=== PATIENT | female | born 1935 | race Caucasian/White ===

== ENCOUNTER 2016-10-19 17:16 | Emergency (ER) | payer MEDICARE, BC ==
--- NOTE | 2016-10-19 18:10 | Emergency Department Record ---
History of Present Illness - General Chief Complaint: Fall Injury Stated Complaint: FALL INJURY Time Seen by Provider: 10/19/16 18:02 Source: Patient Mode of Arrival: Ambulatory - History of Present Illness Initial Comments: The patient is a who lives alone with her small dog. She was outside walking the dog when the dog jerked hard on the leash and caught her off guard. She fell face first onto the asphalt cutting her lip. A passerby brought her to the [facility]. She did not lose consciousness. She states her front teeth feel "big" and sore and her neck and right shoulder hurt, although in the past she has had pains in these areas before. She states she is supposed to have lumbar back surgery for a disc problem but has not scheduled it. She has chronic low back pain as well which is unchanged. She denies taking blood thinners of any kind. Complaint: Fall Onset/Timin -: Minutes(s) Fall From: Standing When Fall Occurred: Just prior to arrival Fall Witnessed: Yes, by bystander Place Fall Occurred: Street Loss of Consciousness: None Prolonged Down Time?: No Symptoms Prior to Fall: None Location: Face Severity: Moderate Severity scale (1-10): 6 Quality: Aching - [place] Coma Scale Eye Response: (4) Open spontaneously Motor Response: (6) Obeys commands Verbal Response: (5) Oriented [place] Total: 15 - Related Data Home Medications Medication Instructions Recorded Confirmed Last Taken Clonidine HCl [Catapres] 0.1 mg PO ASDIR 04/28/14 10/19/16 1 Day Ago ~10/18/16 Desloratadine [Desloratadine] 5 mg PO ASDIR 04/28/14 10/19/16 1 Day Ago ~10/18/16 Desvenlafaxine Succinate [Pristiq 100 mg PO ASDIR 04/28/14 10/19/16 1 Day Ago ER] ~10/18/16 Levothyroxine Sodium [Synthroid] 75 mcg PO ASDIR 04/28/14 10/19/16 1 Day Ago ~10/18/16 Meloxicam [Meloxicam] 15 mg PO ASDIR 04/28/14 10/19/16 1 Day Ago ~10/18/16 Tiagabine HCl [Tiagabine HCl] 4 mg PO ASDIR 04/28/14 10/19/16 1 Day Ago ~10/18/16 Trazodone HCl [Desyrel] 50 mg PO QHS 04/28/14 10/19/16 1 Day Ago ~10/18/16 Zolpidem Tartrate [Ambien Cr] 12.5 mg PO ASDIR 04/28/14 10/19/16 1 Day Ago ~10/18/16 Previous Rx's Medication Instructions Recorded Fluticasone Propionate [Flonase] 2 spray EACH NARES DAILY #1 bottle 04/28/14 Acetaminophen with Codeine 1 tab PO Q4H #14 tab 10/19/16 [Tylenol #3] Penicillin V Potassium 500 mg PO Q6H #39 tab 10/19/16 Allergies Allergy/AdvReac Type Severity Reaction Status Date / Time Sulfa (Sulfonamide Allergy HIVES Verified 10/19/16 17:28 Antibiotics) Travel Screening - Travel/Exposure Within Last 30 Days Have you traveled within the last 30 days?: No - Travel/Exposure Within Last Year Have you traveled outside the [place] in the last year?: No - Additonal Travel Details Have you been exposed to anyone with a communicable illness?: No - Travel Symptoms Symptom Screening: None Review of Systems Reviewed: No additional complaints except as noted below Constitutional: Reports: As per HPI. Denies: Chills, Fever, Malaise, Night sweats, Weakness, Weight change Eyes: Reports: As per HPI. Denies: Eye discharge, Eye pain, Photophobia, Vision change ENT: Reports: As per HPI. Denies: Congestion, Dental pain, Ear pain, Epistaxis , Hearing loss, Throat pain Respiratory: Reports: As per HPI. Denies: Cough, Dyspnea, Hemoptysis, Stridor, Wheezes Cardiovascular: Reports: As per HPI. Denies: Arrhythmia, Chest pain, Dyspnea on exertion, Edema, Murmurs, Orthopnea, Palpitations, Paroxysmal nocturnal dyspnea, Rheumatic Fever, Syncope Endocrine: Reports: As per HPI. Denies: Fatigue, Heat or cold intolerance, Polydipsia, Polyuria Gastrointestinal: Reports: As per HPI. Denies: Abdominal pain, Constipation, Diarrhea, Hematemesis, Hematochezia, Melena, Nausea, Vomiting Genitourinary: Reports: As per HPI. Denies: Abnormal menses, Discharge, Dyspareunia, Dysuria, Frequency, Hematuria, Incontinence, Retention, Urgency Musculoskeletal: Reports: As per HPI. Denies: Arthralgia, Back pain, Gout, Joint swelling, Myalgia, Neck pain Skin: Reports: As per HPI. Denies: Bruising, Change in color, Change in hair/ nails, Lesions, Pruritus, Rash Neurological: Reports: As per HPI. Denies: Abnormal gait, Confusion, Headache, Numbness, Paresthesias, Seizure, Tingling, Tremors, Vertigo, Weakness Psychiatric: Reports: As per HPI. Denies: Anxiety, Auditory hallucinations, Depression, Homicidal thoughts, Suicidal thoughts, Visual hallucinations Hematological/Lymphatic: Reports: As per HPI. Denies: Anemia, Blood Clots, Easy bleeding, Easy bruising, Swollen glands Past Medical History - SOCIAL HISTORY Smoking Status: Current every day smoker Alcohol Use: None Drug Use: None - RESPIRATORY Hx Respiratory Disorders: No Hx Pneumonia: Yes Comment:: viral pneumonia that made [facility] lungs collapse in hosp. 3 mo. - CARDIOVASCULAR Hx Cardio Disorders: Yes Hx Heart Attack: Yes (Jul 2015) Hx Hypertension: Yes - NEURO Hx Neuro Disorders: No - GI Hx GI Disorders: No - Hx Genitourinary Disorders: Yes Comment:: incontinence - ENDOCRINE Hx Endocrine Disorders: Yes Hx Thyroid Disease: Yes - MUSCULOSKELETAL Hx Musculoskeletal Disorders: Yes Hx Back Injury: Yes Comment:: spinal stenosis - PSYCH Hx Psych Problems: No - HEMATOLOGY/ONCOLOGY Hx Hematology/Oncology Disorders: No Family Medical History Any Significant Family History?: Yes Hx Cancer: Father, Mother Physical Exam - General General Appearance: Alert, Oriented x3, Cooperative, No acute distress - Head Image of Face/Head: 1 - Nasal and facial contusion with lacerated upper lip crossing eddy border. Upper front are sensitive to palpation. - Eye Eye exam: Normal appearance, PERRL Pupils: Normal accommodation - ENT ENT exam: Normal exam, Mucous membranes moist, Normal external ear exam, Normal orophraynx, TM's normal bilaterally Ear exam: Normal external inspection. negative: External canal tenderness Nasal Exam: Normal inspection, Other (see drawing). negative: Discharge, Sinus tenderness Mouth exam: Normal external inspection, Tongue normal, Other (see draawing) Teeth exam: Normal inspection, Other (see drawing). negative: Dental caries Throat exam: Normal inspection. negative: Tonsillar erythema, Tonsillar exudate - Neck Neck exam: Normal inspection, Full ROM, Tenderness (diffuse neck tenderness all levels and bilaterally) - Respiratory Respiratory exam: Normal lung sounds bilaterally. negative: Chest wall tenderness, Respiratory distress - Cardiovascular Cardiovascular Exam: Regular rate, Normal rhythm, Normal heart sounds - GI/Abdominal GI/Abdominal exam: Soft, Normal bowel sounds. negative: Tenderness - Rectal Rectal exam: Deferred - exam: Deferred - Extremities Extremities exam: Normal inspection, Full ROM, Normal capillary refill, Tenderness (diffusely sore right shoulder at humeral head), Other (no bony tenderness to lower extremities; ROM intact to all extremities excepting diffusely tender right shoulder on ROM.) - Back Back exam: Reports: Normal inspection, Full ROM. Denies: Muscle spasm, Rash noted, Tenderness - Neurological Neurological exam: Alert, Normal gait, Oriented X3, Reflexes normal - Psychiatric Psychiatric exam: Normal affect, Normal mood - Skin Skin exam: Dry, Intact, Normal color, Warm Course Vital Signs 10/19/16 17:19 Temperature 98.3 F Pulse Rate 78 Respiratory 18 Rate Blood Pressure 155/99 Pulse Ox 95 - Reevaluation(s) Reevaluation #1: DW Dr. Tamra Marx neurosurgeon who requests the patient follow up in his office during the upcoming week. Office number [phone]. 10/19/16 20:06 Medical Decision Making - Management Options MDM Management: Additional Work-up Planned (e.g. ADM/Transfer/OP Study) ( Neurosurgeon in office this week.) - Data Complexity MDM Data: X-Ray Ordered and/or Reviewed (Noncontrast Head CT, C spine CT and Facial bones CT: Numerous chronic changes; C spine has multilevel degenerative changes with a nondisplaced fracture of C3 spur at the anterior inferior base of the spur.) Disposition Disposition: Discharge Clinical Impression: Neck and shoulder pain, Bone spur of other site Fall Qualifiers: Encounter type: initial encounter Qualified Code(s): W19.XXXA - Unspecified fall, initial encounter Laceration of lip Qualifiers: Encounter type: initial encounter Qualified Code(s): S01.511A - Laceration without foreign body of lip, initial encounter Disposition: Home, Self-Care Condition: (1) Good Instructions: Fall Prevention for Older Adults (ED) Additional Instructions: Soft collar. Follow up with Dr. Barboza neurosurgery in his office this upcoming week. Bring disc of scan to your appointment with you. Office number is [phone]. Pen Vk as directed until gone. Sutures on lip will dissolve. Soft diet, Ice to swelling first 72 hours as needed. Expect scarring and possible permanent lump. Follow up with PCP as needed.. Prescriptions: Acetaminophen with Codeine [Tylenol #3] 1 tab PO Q4H #14 tab Penicillin V Potassium 500 mg PO Q6H #39 tab
[2016-10-19] MEDS: Diph,Pert(Acell),Tet Vac 0.5 ML SYR IM ONE (19:25)
[2016-10-19] MEDS: PENICILLIN V POTASSIUM 250 MG TAB PO ONE (20:02)
[2016-10-19] MEDS: ACETAMINOPHEN W/ CODEINE 300MG/30MG TABLET PO ONE (20:31)
--- NOTE | 2016-10-23 17:22 | CT SCAN REPORT ---
EXAM: CT SCAN HEAD WO CONTRAST HISTORY: PATIENT FELL AND STRUCK THE FACE AND NOSE REGION. TECHNIQUE: Standard CT imaging of the brain was performed in the axial plane without contrast. Additional coronal and sagittal reformatted images were also performed. HAND DOMINANCE: Right. ENCOUNTER: Initial. COMPARISON: Previous CT scan of the facial bones dated March 22, 2015. FINDINGS: There is mild generalized atrophy. The ventricles and subarachnoid spaces are otherwise normal. Moderate chronic small vessel ischemic changes are present within the periventricular and subcortical white matter of both cerebral hemispheres. Old lacunar infarcts are present within the basal ganglia bilaterally. The skull is intact. The orbits and sinuses are normal. There is nonspecific fluid within the left mastoid air cells. The right mastoid air cells are clear. IMPRESSION: 1. NO ACUTE INTRACRANIAL ABNORMALITY OR SKULL FRACTURE. 2. MILD ATROPHY AND MODERATE CHRONIC SMALL VESSEL ISCHEMIC CHANGES. 3. NONSPECIFIC FLUID WITHIN THE LEFT MASTOID AIR CELLS. JOB NUMBER: [id number] [facility]TDD
--- NOTE | 2016-10-23 17:29 | CT SCAN REPORT ---
EXAM: CT SCAN MAXILLOFACIAL WO CONTRAST HISTORY: PATIENT FELL AND STRUCK THE NOSE/FACE. PAIN. HAND DOMINANCE: Right. ENCOUNTER: Initial. COMPARISON: March 22, 2015. FINDINGS: The facial bones are intact. There is no fracture. There is very minor mucosal thickening within the ethmoid and maxillary sinuses. There are no sinus air-fluid levels. The nasal bones, nasal septum, and nasal turbinates are normal. The orbits are unremarkable. The remaining facial soft tissues also appear normal. There is nonspecific fluid within the left mastoid air cells. IMPRESSION: NEGATIVE CT SCAN OF THE FACIAL BONES. JOB NUMBER: [id number] [facility]
--- NOTE | 2016-10-23 17:35 | CT SCAN REPORT ---
EXAM: CT SCAN CERVICAL SPINE WO CONTRAST HISTORY: PATIENT FELL AND STRUCK THE FACIAL REGION. INJURY. TECHNIQUE: Standard CT imaging of the cervical spine was performed in the axial plane without contrast. Additional coronal and sagittal reformatted images were also performed. HAND DOMINANCE: Right. ENCOUNTER: Initial. COMPARISON: None. FINDINGS: There is normal cervical alignment. The craniocervical and cervicothoracic junctions are normal. There is a nondisplaced fracture at the base of an anterior spur arising from the anterior/inferior corner of the C3 vertebral body. The vertebral body itself appears intact. The remaining osseous structures also appear intact. There is no evidence for instability or subluxation. Disc space narrowing and endplate degenerative changes are present throughout the cervical spine and are greatest at the C4/5 level. There is no gross central canal stenosis. There is mild neural foraminal narrowing at multiple levels. The neck soft tissues appear within normal limits. There are postsurgical changes at the left apex. Emphysematous changes are also present within the upper lung kirk. IMPRESSION: 1. THERE IS A NONDISPLACED FRACTURE INVOLVING A DEGENERATIVE SPUR EXTENDING OFF THE ANTERIOR/INFERIOR CORNER OF THE C3 VERTEBRAL BODY. THERE ARE NO OTHER CERVICAL SPINE FRACTURES. 2. MULTILEVEL DEGENERATIVE DISC DISEASE AND FACET ARTHROPATHY. JOB NUMBER: [id number] [facility]
--- NOTE | 2016-10-23 17:38 | RADIOLOGY REPORT ---
EXAM: SHOULDER, RIGHT HISTORY: RIGHT SHOULDER PAIN STATUS POST FALL. PREVIOUS SHOULDER SURGERY. TECHNIQUE: Five views of the right shoulder were obtained. COMPARISON: October 03, 2015. FINDINGS: The patient is status post internal fixation of an oblique fracture within the proximal shaft of the humerus. Plate and screw fixation is present. A small portion of the fracture line remains visible. There is no acute fracture or dislocation. There are moderate hypertrophic degenerative changes of the AC joint and glenoid. There is no dislocation. The shoulder is otherwise unremarkable. IMPRESSION: 1. NO ACUTE RIGHT SHOULDER PATHOLOGY. 2. MODERATE ARTHRITIC CHANGES. 3. PREVIOUS INTERNAL FIXATION OF A PROXIMAL SHAFT FRACTURE WITHIN THE HUMERUS. JOB NUMBER: [id number] [facility]TDD
== END 2016-10-19 20:40 | disposition home or self-care (01) ==
LOC: ER 17:16
DX: S01.511A Laceration without foreign body of lip, initial encounter (principal); S00.33XA Contusion of nose, initial encounter; M54.2 Cervicalgia; M25.511 Pain in right shoulder; M46.02 Spinal enthesopathy, cervical region; I25.2 Old myocardial infarction; I10 Essential (primary) hypertension; F17.210 Nicotine dependence, cigarettes, uncomplicated; W01.198A Fall on same level from slipping, tripping and stumbling with subsequent striking against other object, initial encounter; Y93.K1 Activity, walking an animal; Y92.410 Unspecified street and highway as the place of occurrence of the external cause
CPT/HCPCS: 40650; 70450; 70486; 72125; 90715; 96372; 99284

== ENCOUNTER 2017-11-02 19:50 | Emergency (ER) | payer MEDICARE ==
--- NOTE | 2017-11-02 19:59 | Emergency Department Record ---
History of Present Illness - General Stated Complaint: FALL Time Seen by Provider: 11/02/17 19:52 Source: Patient, EMS Mode of Arrival: EMS Limitations: No limitations - History of Present Illness Initial Comments: 81 yo female presents to ED for evaluation of a fall while walking her dog just prior to arrival. Patient reports that she tripped while walking on the sidewalk resulting in fall with injury to the nose and face. Patient denies the use of anticoagulation medication, denies LOC or neck pain symptoms. Patient does report pain over the right knee. Patient denies extremity weakness , numbness, or tingling symptoms. Patient denies health problems at her baseline other than HTN. MD Complaint: Fall Onset/Timin -: Minutes(s) Fall From: Standing When Fall Occurred: 1 hour [employer]UCK [employer]ENT[employer] Fall Witnessed: No Place Fall Occurred: Street Loss of Consciousness: None Prolonged Down Time?: No Symptoms Prior to Fall: None Location: Head, Face Location - Extremities: Right: Knee Severity: Moderate Quality: Aching Context: Alcohol use, Tripped/slipped - [place] Coma Scale Eye Response: (4) Open spontaneously Motor Response: (6) Obeys commands Verbal Response: (5) Oriented [place] Total: 15 - Related Data Previous Rx's Medication Instructions Recorded Fluticasone Propionate [Flonase] 2 spray EACH NARES DAILY #1 bottle 04/28/14 Acetaminop W/ Codeine 300/30Mg 1 tab PO Q4H #14 tab 10/19/16 [Tylenol #3] Hydrocodone/Acetaminophen [[place] 1 each PO Q6H PRN #15 tablet 11/02/17 5-325 Tablet] Allergies Allergy/AdvReac Type Severity Reaction Status Date / Time Sulfa (Sulfonamide Allergy HIVES Verified 10/19/16 17:28 Antibiotics) Review of Systems Constitutional: Denies: Chills, Fever, Malaise, Night sweats Eyes: Denies: Eye discharge, Eye pain ENT: Reports: Epistaxis. Denies: Congestion, Ear pain Respiratory: Denies: Cough, Dyspnea Cardiovascular: Denies: Chest pain, Dyspnea on exertion Endocrine: Denies: Fatigue, Heat or cold intolerance Gastrointestinal: Denies: Abdominal pain, Nausea, Vomiting Genitourinary: Denies: Incontinence, Retention Musculoskeletal: Reports: Arthralgia (right knee), Joint swelling (right knee). Denies: Back pain, Gout Skin: Reports: Bruising. Denies: Change in color, Change in hair/nails Neurological: Denies: Abnormal gait, Confusion, Headache, Seizure Psychiatric: Denies: Anxiety Hematological/Lymphatic: Denies: Anemia, Blood Clots Past Medical History - SOCIAL HISTORY Smoking Status: Current every day smoker Drug Use: None - RESPIRATORY Hx Respiratory Disorders: No Hx Pneumonia: Yes Comment:: viral pneumonia that made maria alejandra lungs collapse in hosp. 3 mo. - CARDIOVASCULAR Hx Cardio Disorders: Yes Hx Heart Attack: Yes (Jul 2015) Hx Hypertension: Yes - NEURO Hx Neuro Disorders: No - GI Hx GI Disorders: No - Hx Genitourinary Disorders: Yes Comment:: incontinence - ENDOCRINE Hx Endocrine Disorders: Yes Hx Thyroid Disease: Yes - MUSCULOSKELETAL Hx Musculoskeletal Disorders: Yes Hx Back Injury: Yes Comment:: spinal stenosis - PSYCH Hx Psych Problems: No - HEMATOLOGY/ONCOLOGY Hx Hematology/Oncology Disorders: No Family Medical History Hx Cancer: Father, Mother Physical Exam - General General Appearance: Alert, Oriented x3, Cooperative, Moderate distress Limitations: No limitations - Head Head exam: Other (Skin abrasion over the nose, epistaxis present with dried blood, no active bleeding.) Head exam detail: negative: Abrasion, Contusion, Strong's sign, General tenderness, Hematoma, Laceration - Eye Eye exam: Normal appearance. negative: Conjunctival injection, Periorbital swelling, Periorbital tenderness, Scleral icterus - ENT Ear exam: negative: Auricular hematoma, Auricular trauma Nasal Exam: Dried blood, Other (No septal hematoma. (2) areas of skin loss to the philtrum are present, 1.0 cm to the left philtrum region, 0.5 cm area of skin loss present to the superior/left philtrum region. Area cannot be sutured/ repaired primarily due to tissue loss without possible deformity to the upper lip from stretching of the tissue.). negative: Discharge, Foreign body Mouth exam: negative: Drooling, Laceration, Muffled voice, Tongue elevation - Neck Neck exam: Other (Cervical collar in place). negative: Meningismus - Respiratory Respiratory exam: Normal lung sounds bilaterally. negative: Rales, Respiratory distress, Rhonchi, Stridor - Cardiovascular Cardiovascular Exam: Regular rate, Normal rhythm, Normal heart sounds Peripheral Pulses: 3+: Dorsalis Pedis (R), Dorsalis Pedis (L) - GI/Abdominal GI/Abdominal exam: Soft. negative: Rebound, Rigid, Tenderness - Rectal Rectal exam: Deferred - exam: Deferred - Extremities Extremities exam: Tenderness (TTP over the right knee, STS present, flexion at the knee is intact, no injury below or above the knee on examination. Compartments of the lower extremity are soft, strong DPP is present.). negative : Calf tenderness, Pedal edema - Back Back exam: Denies: CVA tenderness (R), CVA tenderness (L) - Neurological Neurological exam: Alert, Oriented X3. negative: Motor sensory deficit - Psychiatric Psychiatric exam: Normal affect, Normal mood - Skin Skin exam: Normal color. negative: Abrasion Type of lesion: negative: abrasion Course - Reevaluation(s) Reevaluation #1: 11/02/17 20:01 Patient was seen and examined, denies the need for analgesia at this time. Will initiate basic laboratory and imaging studies and reassess. Reevaluation #2: 11/02/17 20:29 Labs reviewed, CO2 30, AG 18. Labs are otherwise grossly unremarkable for an acute process. Patient is currently in CT for imaging studies. Reevaluation #3: 11/02/17 21:33 CT Head: No acute traumatic injury CT Cervical Spine: DJD, no acute fracture CT Maxillo-facial bone: Comminuted, minimally displaced nasal bone fracture Right knee: Comminuted fracture patella, possible tibial plateau fracture Following review of the patient's imaging, she was updated on results thus far. Will perform CT imaging of the right knee to further determine if tibial plateau fracture may be present. Reevaluation #4: 11/02/17 23:02 CT right lower extremity: Comminuted patella fracture without evidence for tibial plateau fracture present. Message was left for Dr. Turpin, will place in knee immobilizer (patient has walker at home) to be used at all times with ambulation and instructions to not bend the the lower extremity at the knee to avoid separation of the patella fracture. Patient was updated on the area of tissue loss to the philtrum of the upper lip region, cannot be repaired primarily due to possible permanent deformity of the left upper lip from stretching of the tissue. Will allow this area to heal by [id number] intention with instructions for plastics follow-up as needed. Medical Decision Making - Lab Data Result diagrams: 11/02/17 19:51 11/02/17 19:51 Disposition Disposition: Discharge Clinical Impression: Patella fracture Qualifiers: Encounter type: initial encounter Fracture type: closed Fracture morphology: comminuted Fracture alignment: nondisplaced Laterality: right Qualified Code(s) : S82.044A - Nondisplaced comminuted fracture of right patella, initial encounter for closed fracture Nasal bone fracture Qualifiers: Encounter type: initial encounter Fracture type: closed Qualified Code(s): S02.2XXA - Fracture of nasal bones, initial encounter for closed fracture Disposition: Home, Self-Care Condition: (2) Stable Instructions: Patellar Fracture (ED) Additional Instructions: Return to ED if your symptoms worsen or if you have any concerns. Pendergrass as directed. Follow-up with Dr. Turpin in the [facility] later this week. Prescriptions: Hydrocodone/Acetaminophen [[place] 5-325 Tablet] 1 each PO Q6H PRN #15 tablet PRN Reason: Pain - Moderate (5-7) Referrals: DAR TURPIN [DOCTOR OF OSTEOPATH] - [facility] [Provider Group] Time of Disposition: 23:07 Quality - Quality Measures Quality Measures: N/A - Blood Pressure Screening Does Patient Have Any of the Following: Active Dx of HTN Blood Pressure Classification: Hypertensive Reading Systolic Measurement: 201 Diastolic Measurement: 92 Screening for High Blood Pressure: Patient Exclusion, Hx of HTN [[id number]]
[2017-11-02 20:01] LABS: BASO % 0.3 % (0-6); EOS % 1.3 % (0-6); HEMATOCRIT 43.1 % (35.0-47.0); HEMOGLOBIN 14.7 gm/dl (11.6-16.0); LYMPH % 20.5 % (16-45); MEAN CELL VOLUME 98.9 fl (81-97); MEAN CORPUSCULAR HEMOGLOBIN 33.7 pg (27-33); MEAN CORPUSCULAR HGB CONC 34.1 g/dl (32-36); MEAN PLATELET VOLUME 10.5 fl (7.4-10.4); MONO % 8.9 % (0-9); PLATELET COUNT 249 K/uL (130-400); RED BLOOD COUNT 4.36 M/uL (3.80-5.40); RED CELL DISTRIBUTION WIDTH 13.5 % (11.5-14.5)
[2017-11-02 20:14] LABS: BLOOD UREA NITROGEN 18 mg/dL (8-23); CREATININE 0.9 mg/dL (0.5-0.9); EST GLOMERULAR FILTRATION RATE > 60 mL/min
[2017-11-02 20:15] LABS: TOTAL PROTEIN 6.6 g/dL (6.6-8.7)
[2017-11-02 20:17] LABS: GLUCOSE,RANDOM 99 mg/dL (74-109)
[2017-11-02 20:20] LABS: ALB/GLOB RATIO 1.9 (1.1-1.8); ALBUMIN 4.3 g/dL (4.0-5.0); ALKALINE PHOSPHATASE 87 U/L (35-104); ALT/SGPT 11 U/L (<33); AST/SGOT 16 U/L (10.0-35.0)
[2017-11-02] MEDS ORDERED: FENTANYL PF 100MCG/2ML VIAL IVP ONE (21:11)
[2017-11-02] MEDS ORDERED: ONDANSETRON HCL IV 4 MG/2 ML VIAL IVP ONE (21:11)
--- NOTE | 2017-11-04 14:13 | RADIOLOGY REPORT ---
EXAM: RIGHT KNEE HISTORY: FALL. TECHNIQUE: Four views of the right knee were obtained. Comparison: None. FINDINGS: There is a comminuted, mildly distracted fracture of the patella. There is irregularity of the tibial plateau without definite fracture. Moderate medial joint space narrowing. There is a large amount of soft tissue swelling anterior to the patella and a small joint effusion. IMPRESSION: COMMINUTED, MILDLY DISPLACED FRACTURE OF THE PATELLA. TIBIAL PLATEAU FRACTURE IS NOT EXCLUDED. CONSIDER CT FOR ADDITIONAL EVALUATION. JOB NUMBER: [id number] [facility]
--- NOTE | 2017-11-04 14:26 | CT SCAN REPORT ---
EXAM: CT OF THE HEAD WITHOUT IV CONTRAST HISTORY: FALL. TECHNIQUE: CT of the head without IV contrast was obtained. Comparison: CT head 10/19/16. Hand dominance: Right. FINDINGS: No evidence of hemorrhage, extraaxial fluid collection, or major vessel infarction. Moderate periventricular and deep white matter low density changes are again seen, consistent with chronic microvascular ischemic disease. The ventricles are normal. The basal cisterns are patent. No mass effect or midline shift. The calvarium is intact. Hypoplasia of the left mastoid air cells with a small amount of fluid is unchanged. There is also a small amount of fluid in the left ethmoid air cells. IMPRESSION: NO ACUTE INTRACRANIAL ABNORMALITIES. J[facility]BER: [id number] [facility]
--- NOTE | 2017-11-04 14:30 | CT SCAN REPORT ---
EXAM: MAXILLOFACIAL CT WITHOUT IV CONTRAST HISTORY: FALL. TECHNIQUE: Helical CT scan of the maxillofacial bones was obtained without IV contrast. Coronal and sagittal reformatted images were obtained. FINDINGS: There is a comminuted, minimally displaced fracture of the nasal bone. No hematoma of the nasal septum. There is a small amount of soft tissue/ fluid density in the left ethmoid air cells. The zygomatic arches are intact. The inferior orbital rims are intact. The temporomandibular joints are aligned normally. IMPRESSION: COMMINUTED, MINIMALLY DISPLACED NASAL BONE FRACTURE. JOB NUMBER: [id number] [facility]
--- NOTE | 2017-11-04 14:34 | CT SCAN REPORT ---
EXAM: CT OF THE CERVICAL SPINE WITHOUT IV CONTRAST HISTORY: FALL. TECHNIQUE: Helical CT scan of the cervical spine was obtained without intravenous contrast. Comparison: CT cervical spine 10/19/16. Encounter: Initial. FINDINGS: Normal alignment of the cervical vertebral bodies with mild accentuated lordosis of the cervical spine. The previously seen fracture of the osteophyte of the inferior aspect of C3 anteriorly has healed in the interim. Multilevel moderate degenerative changes are again seen in the cervical spine. The facet joints are aligned normally. No prevertebral soft tissue swelling. No acute fractures are identified. The lung apices show emphysematous changes with surgical clips in the left apex, similar to previous exam. IMPRESSION: DEGENERATIVE CHANGES OF THE CERVICAL SPINE, NO EVIDENCE OF ACUTE FRACTURE OR MALALIGNMENT. JOB NUMBER: [id number] [facility]
--- NOTE | 2017-11-04 14:39 | CT SCAN REPORT ---
EXAM: CT OF THE RIGHT KNEE WITHOUT IV CONTRAST HISTORY: FALL. TECHNIQUE: 3D imaging was performed on a dependent portion workstation for improved visualization of fracture anatomy. Comparison: X-rays done earlier today. FINDINGS: DISTAL FEMUR: No fracture. PROXIMAL TIBIA: Mild spurring of the tibial spines. No fracture. PROXIMAL FIBULA: No fracture. PATELLA: Comminuted, mildly distracted fracture. There is moderate soft tissue swelling around the patellar fracture. Small joint effusion, lipohemarthrosis. 3D: The comminuted fracture of the patella is well demonstrated. IMPRESSION: COMMINUTED PATELLAR FRACTURE WITH SURROUNDING SOFT TISSUE SWELLING. THERE IS A SMALL LIPOHEMARTHROSIS. NO ADDITIONAL FRACTURES ARE IDENTIFIED. J[facility]BER: [id number] [facility]
== END 2017-11-02 23:00 | disposition home or self-care (01) ==
LOC: ER 19:50
DX: S82.044A Nondisplaced comminuted fracture of right patella, initial encounter for closed fracture (principal); S02.2XXA Fracture of nasal bones, initial encounter for closed fracture; S01.501A Unspecified open wound of lip, initial encounter; I10 Essential (primary) hypertension; W01.198A Fall on same level from slipping, tripping and stumbling with subsequent striking against other object, initial encounter; I25.2 Old myocardial infarction; F17.210 Nicotine dependence, cigarettes, uncomplicated; Y93.K1 Activity, walking an animal; Y92.410 Unspecified street and highway as the place of occurrence of the external cause
CPT/HCPCS: 29505; 99284 ×2; 96374; 96375; 85025; 80053; 73564; 72125; 70450; 73700; 70486; G0480; J2405; J3010; 80320

== ENCOUNTER 2018-05-16 18:24 | Observation (INO) | payer MEDICARE ==
[2018-05-16] MEDS ORDERED: MORPHINE SULFATE 10 MG/ML VIAL IVP ONE (18:47)
[2018-05-16] MEDS ORDERED: ONDANSETRON HCL IV 4 MG/2 ML VIAL IVP ONE (18:47)
--- NOTE | 2018-05-16 18:51 | Emergency Department Record ---
History of Present Illness - General Chief Complaint: Abdominal Pain Stated Complaint: VOMITING,ABDOMINAL PAIN Time Seen by Provider: 05/16/18 18:42 Source: Patient Mode of Arrival: Stretcher Limitations: No limitations - History of Present Illness Initial Comments: 82 yo female presents to ED for evaluation of diffuse abdominal pain, nausea, and vomiting that began 2-3 days ago. Patient's caregiver reports history of hiatal hernia that has migrated into the chest cavity that is inoperable due to the patient's age. Patient reports that she is being medically treated with omeprazole for her symptoms. Patient denies fevers, chills, or previous abdominal surgeries. MD Complaint: Abdominal pain Onset/Timin -: Hour(s) Location: Diffuse Radiation: None Migration to: No migration Severity: Moderate Severity scale (1-10): 10 Quality: Aching, Sharp Consistency: Constant Improves With: Nothing Worsens With: Nothing Associated Symptoms: Nausea, Vomiting - Related Data Patient : No Previous Rx's Medication Instructions Recorded Fluticasone Propionate [Flonase] 2 spray EACH NARES DAILY #1 bottle 04/28/14 Acetaminop W/ Codeine 300/30Mg 1 tab PO Q4H #14 tab 10/19/16 [Tylenol #3] Hydrocodone/Acetaminophen [[place] 1 each PO Q6H PRN #15 tablet 11/02/17 5-325 Tablet] Allergies Allergy/AdvReac Type Severity Reaction Status Date / Time Sulfa (Sulfonamide Allergy HIVES Verified 10/19/16 17:28 Antibiotics) Travel Screening - Travel/Exposure Within Last 30 Days Have you traveled within the last 30 days?: No - Travel/Exposure Within Last Year Have you traveled outside the [place] in the last year?: No - Additonal Travel Details Have you been exposed to anyone with a communicable illness?: No - Travel Symptoms Symptom Screening: None Review of Systems Constitutional: Denies: Chills, Fever, Malaise, Night sweats Eyes: Denies: Eye discharge, Eye pain ENT: Denies: Congestion, Ear pain, Epistaxis Respiratory: Denies: Cough, Dyspnea Cardiovascular: Denies: Chest pain, Dyspnea on exertion Endocrine: Denies: Fatigue, Heat or cold intolerance Gastrointestinal: Reports: Abdominal pain, Nausea, Vomiting Genitourinary: Denies: Incontinence, Retention Musculoskeletal: Denies: Arthralgia, Back pain Skin: Denies: Bruising, Change in color Neurological: Denies: Abnormal gait, Confusion, Headache, Seizure Psychiatric: Denies: Anxiety Hematological/Lymphatic: Denies: Anemia, Blood Clots Past Medical History - SOCIAL HISTORY Smoking Status: Current every day smoker Alcohol Use: None Drug Use: None - RESPIRATORY Hx Respiratory Disorders: No Hx Pneumonia: Yes Comment:: viral pneumonia that made [facility] collapse in hosp. 3 mo. - CARDIOVASCULAR Hx Cardio Disorders: Yes Hx Heart Attack: Yes (Jul 2015) Hx Hypertension: Yes - NEURO Hx Neuro Disorders: No - GI Hx GI Disorders: No - Hx Genitourinary Disorders: Yes Comment:: incontinence - ENDOCRINE Hx Endocrine Disorders: Yes Hx Thyroid Disease: Yes - MUSCULOSKELETAL Hx Musculoskeletal Disorders: Yes Hx Back Injury: Yes Comment:: spinal stenosis - PSYCH Hx Psych Problems: No - HEMATOLOGY/ONCOLOGY Hx Hematology/Oncology Disorders: No Family Medical History Any Significant Family History?: Yes Hx Cancer: Father, Mother Physical Exam - General General Appearance: Alert, Oriented x3, Cooperative, Moderate distress Limitations: No limitations - Head Head exam: Atraumatic, Normocephalic, Normal inspection Head exam detail: negative: Abrasion, Contusion, Strong's sign, General tenderness, Hematoma, Laceration - Eye Eye exam: Normal appearance. negative: Conjunctival injection, Periorbital swelling, Periorbital tenderness, Scleral icterus - ENT Ear exam: negative: Auricular hematoma, Auricular trauma Nasal Exam: negative: Active bleeding, Discharge, Dried blood, Foreign body Mouth exam: negative: Drooling, Laceration, Muffled voice, Tongue elevation - Neck Neck exam: Normal inspection. negative: Meningismus, Tenderness - Respiratory Respiratory exam: Normal lung sounds bilaterally. negative: Rales, Respiratory distress, Rhonchi, Stridor - Cardiovascular Cardiovascular Exam: Regular rate, Normal rhythm, Normal heart sounds - GI/Abdominal GI/Abdominal exam: Soft, Tenderness, Other (Diffuse TTP present on examination, soft, no rigidity, no peritoneal signs are present on examination.). negative: Rebound, Rigid - Rectal Rectal exam: Deferred - exam: Deferred - Extremities Extremities exam: Normal inspection. negative: Pedal edema, Tenderness - Back Back exam: Denies: CVA tenderness (R), CVA tenderness (L) - Neurological Neurological exam: Alert, Normal gait, Oriented X3 - Psychiatric Psychiatric exam: Normal affect, Normal mood - Skin Skin exam: Normal color. negative: Abrasion Type of lesion: negative: abrasion Course Vital Signs 05/16/18 18:30 Temperature 98.6 F Pulse Rate 117 H Respiratory 54 H Rate Blood Pressure 223/164 - Reevaluation(s) Reevaluation #1: 05/16/18 19:49 Laboratory studies were reviewed: WBC 12.5 with 90% Neutrophils CO2 21 AG [address] ready for [address] imaging, Dilaudid and Phenergan ordered for continued pain symptoms following Morphine and Zofran. Reevaluation #2: 05/16/18 21:12 CT Abdomen and Pelvis: Increased biliary duct dilatation which may result from expected change s/p cholecystectomy vs. possible biliary obstruction Large hiatal hernia with the majority of the stomach within the chest. Patient was reassessed, she is now sleeping and resting comfortably at this time. Case was discussed with Kelly Stevenson, will admit for further evaluation and possible Hospice consultation. Medical Decision Making - Lab Data Result diagrams: 05/16/18 19:00 05/16/18 19:00 Disposition Disposition: Admit Clinical Impression: Hiatal hernia, Chronic abdominal pain Disposition: Still a Patient at [facility] Decision to Admit: Admit from ER Decision to Admit Date: 05/16/18 Decision to Admit Time: 21:18 Condition: (2) Stable Forms: Patient Portal Access Time of Disposition: 21:18 Quality - Quality Measures Quality Measures: N/A - Blood Pressure Screening Does Patient Have Any of the Following: Active Dx of HTN Blood Pressure Classification: Hypertensive Reading Systolic Measurement: 223 Diastolic Measurement: 164 Screening for High Blood Pressure: Patient Exclusion, Hx of HTN [G9744]
[2018-05-16] MEDS ORDERED: 0.9 % SODIUM CHLORIDE 1000ML 1,000 ML IV SCH (19:00)
[2018-05-16 19:17] LABS: HEMATOCRIT 44.1 % (35.0-47.0); HEMOGLOBIN 14.8 gm/dl (11.6-16.0); MEAN CELL VOLUME 95.2 fl (81-97); MEAN CORPUSCULAR HGB CONC 33.6 g/dl (32-36); MEAN PLATELET VOLUME 11.3 fl (7.4-10.4); PLATELET COUNT 292 K/uL (130-400); RED BLOOD COUNT 4.63 M/uL (3.80-5.40); RED CELL DISTRIBUTION WIDTH 13.5 % (11.5-14.5); WHITE BLOOD COUNT W/O DIFF 12.5 K/uL (4.2-12.2)
[2018-05-16 19:27] LABS: BLOOD UREA NITROGEN 13 mg/dL (8-23); CREATININE 0.8 mg/dL (0.5-0.9); EST GLOMERULAR FILTRATION RATE > 60 mL/min
[2018-05-16 19:28] LABS: TOTAL PROTEIN 6.6 g/dL (6.6-8.7)
[2018-05-16 19:30] LABS: GLUCOSE,RANDOM 186 mg/dL (74-109)
[2018-05-16 19:33] LABS: ALB/GLOB RATIO 1.6 (1.1-1.8); ALBUMIN 4.1 g/dL (4.0-5.0); ALKALINE PHOSPHATASE 90 U/L (35-104); ALT/SGPT 14 U/L (<33); AST/SGOT 23 U/L (10.0-35.0); LIPASE 11 U/L (13-60)
[2018-05-16] MEDS ORDERED: PROMETHAZINE HCL 12.5 MG in 0.9 % SODIUM CHLORIDE 100ML 100 ML IVPB ONE (19:49)
[2018-05-16] MEDS ORDERED: HYDROMORPHONE HCL 2 MG/ML VIAL IVP ONE (19:49)
[2018-05-16] MEDS ORDERED: ONDANSETRON HCL IV 4 MG/2 ML VIAL IVP PRN (21:57)
[2018-05-16] MEDS ORDERED: DESVENLAFAXINE SUCCINATE 100 MG PO SCH (21:57)
[2018-05-16] MEDS ORDERED: HYDROMORPHONE HCL 2 MG/ML VIAL IV PRN (21:57)
[2018-05-16] MEDS ORDERED: CLONIDINE HCL 0.1 MG TABLET PO SCH (21:57)
[2018-05-16] MEDS ORDERED: LEVOTHYROXINE SODIUM 75 MCG TABLET PO SCH (21:57)
[2018-05-16] MEDS ORDERED: TRAZODONE 50 MG TABLET PO SCH (22:00)
[2018-05-16] MEDS: 0.9 % SODIUM CHLORIDE 1000ML 1,000 ML IV PRN (23:03)
[2018-05-17] MEDS: CLONIDINE HCL 0.1 MG TABLET PO SCH ×2 (00:31→13:49)
[2018-05-17] MEDS ORDERED: LEVOTHYROXINE SODIUM 75 MCG TABLET PO SCH (07:00)
--- NOTE | 2018-05-17 07:34 | CT SCAN REPORT ---
EXAM: POST CONTRAST CT OF THE ABDOMEN AND PELVIS HISTORY: ABDOMINAL PAIN WITH NAUSEAS AND VOMITING. TECHNIQUE: CT of the abdomen and pelvis was obtained with 100 ml Omnipaque 300 intravenous contrast. Comparison: CT of the abdomen and pelvis 04/29/18. FINDINGS: Pulmonary emphysema and linear scarring is seen in the visualized portions of both lungs with a bulla in the anterior left lung base. Small left hepatic lobe cyst, similar from prior. Mild intrahepatic biliary ductal dilatation, increased from prior. The gallbladder appears surgically absent. The extrahepatic bile ducts are dilated, measuring up to 13 mm, and increased from prior study. The adrenal glands appear unremarkable. The pancreas appears unremarkable. Large peripherally calcified intrasplenic cyst, similar from prior. Additional tiny hypoattenuating focus in the superior spleen is unchanged as well. Multiple bilateral small low attenuation renal cortical lesions, as seen previously. Symmetric renal perfusion. No hydronephrosis. Moderate stool in the rectum. Extensive sigmoid colon diverticulosis with additional scattered diverticula in the colon, without evidence of acute diverticulitis. Normal appendix. Large hiatal hernia is again seen containing the majority of the stomach. The small bowel loops appear nondilated. No free air or free fluid. The uterus appears absent. The urinary bladder is mildly distended, otherwise unremarkable. Extensive atherosclerotic calcified plaque of the aortoiliac arterial access without evidence of aneurysm or dissection. Chronic fracture deformities of the right superior and inferior pubic rami. L1 vertebral body compression fracture with osseous retropulsion, similar from prior. Significant disk height loss with end plate osteophytes and sclerosis at L3-L4. IMPRESSION: 1. MILD INTRA AND EXTRAHEPATIC BILIARY DUCTAL DILATATION, WHICH APPEARS INCREASED FROM CT COMPARISON ON 04/29/18. NO INTRADUCTAL CALCULUS OR DISTAL OBSTRUCTING LESION IS IDENTIFIED. WHILE THIS COULD REPRESENT PROGRESSION OF FUNCTIONAL CHANGES IN THE SETTING OF PREVIOUS CHOLECYSTECTOMY, CLINICAL CORRELATION FOR EVIDENCE OF BILIARY OBSTRUCTION IS RECOMMENDED. 2. LARGE HIATAL HERNIA CONTAINING THE MAJORITY OF THE STOMACH. THE SMALL BOWEL APPEARS NONDILATED. 3. COLONIC DIVERTICULOSIS WITHOUT EVIDENCE OF ACUTE DIVERTICULITIS. 4. INCIDENTAL 2.6 CM LEFT ADNEXAL CYST; GIVEN PATIENT AGE, NONEMERGENT FOLLOW- UP PELVIC ULTRASOUND IS RECOMMENDED TO FURTHER CHARACTERIZE. 5. MULTIPLE ADDITIONAL, INCIDENTAL AND CHRONIC FINDINGS, DISCUSSED IN THE BODY OF THE REPORT, ALL OF WHICH APPEAR OVERALL SIMILAR FROM CT OF THE ABDOMEN ON JOB NUMBER: [id number] [facility]
[2018-05-17] MEDS: 0.9 % SODIUM CHLORIDE 1000ML 1,000 ML IV PRN (07:35)
[2018-05-17] MEDS ORDERED: PNEUM 13-VAL/PF 0.5 ML IM ONE (09:00)
[2018-05-17 09:48] LABS: BASO % 0.1 % (0-6); EOS % 0.8 % (0-6); GRAN % 79.8 % (47-80); HEMATOCRIT 40.1 % (35.0-47.0); LYMPH % 8.8 % (16-45); MEAN CORPUSCULAR HEMOGLOBIN 31.8 pg (27-33); MEAN CORPUSCULAR HGB CONC 32.4 g/dl (32-36); MEAN PLATELET VOLUME 10.8 fl (7.4-10.4); MONO % 10.5 % (0-9); PLATELET COUNT 236 K/uL (130-400); RED BLOOD COUNT 4.09 M/uL (3.80-5.40); RED CELL DISTRIBUTION WIDTH 13.9 % (11.5-14.5); WHITE BLOOD COUNT W/O DIFF 9.1 K/uL (4.2-12.2)
--- NOTE | 2018-05-17 09:49 | History & Physical ---
History of Present Illness - Date of Service Date of Service for History & Physical: 05/17/18 - History of Present Illness Admitting Diagnosis: Intractable abdominal pain. Large hiatal hernia. Nausea/ vomiting History of Present Illness: Mrs. Silva is an 82 year-old female who presented to the ED on for evaluation of diffuse abdominal pain, nausea, and vomiting that began 2-3 days prior. Patient's caregiver reported history of large hiatal hernia that has migrated into the chest cavity that is inoperable due to the patient's age. Patient reported that she is being medically treated with omeprazole for her symptoms. Patient denied fevers, chills, or previous abdominal surgeries. Her health history includes: AL in 2016, HTN, urinary incontinence, thyroid disorder, spinal stenosis, and hiatal hernia. Current every day smoker, medical marijuana use, and moderate alcohol use. In the ED, her vitals were: BP 223/164, HR 117, RR 54, T 98.6F. Labs revealed WBC of 12.5 with 90% neutrophils, CO2 21, AG of 21. Abdominal/pelvis CT demonstrated increased biliary duct dilatation which may represent expected change s/p cholecystectomy vs. possible biliary obstruction and large hiatal hernia with the majority of the stomach within the chest. An incidental finding of 2.6cm left adnexal cyst was found and recommend nonemergent f/u pelvic ultrasound. Pt. was admitted for further evaluation and possible hospice vs. palliative care consultation. 05/17/18: Pt. is resting comfortably in bed. She presently denies pain and nausea. Repeat labs ordered and pending. Case management consult ordered to discuss long-term plan- likely palliative care for symptom management. Will order consult for surgery to further assess biliary ductal dilation that has increased in size from CT on . PCP: Dr. Huber Travel Screening - Travel/Exposure Within Last 30 Days Have you traveled within the last 30 days?: No - Travel/Exposure Within Last Year Have you traveled outside the [place] in the last year?: No - Additonal Travel Details Have you been exposed to anyone with a communicable illness?: No - Travel Symptoms Symptom Screening: None Review of Systems Constitutional: Denies: Chills, Fever, Malaise, Night sweats Eyes: Denies: Eye discharge, Eye pain ENT: Denies: Congestion, Ear pain, Epistaxis Respiratory: Denies: Cough, Dyspnea Cardiovascular: Denies: Chest pain, Dyspnea on exertion Endocrine: Denies: Fatigue, Heat or cold intolerance Gastrointestinal: Reports: As per HPI. Denies: Abdominal pain, Constipation, Diarrhea, Hematemesis, Hematochezia, Melena, Nausea, Vomiting Genitourinary: Denies: Incontinence, Retention Musculoskeletal: Denies: Arthralgia, Back pain Skin: Denies: Bruising, Change in color Neurological: Denies: Abnormal gait, Confusion, Headache, Seizure Psychiatric: Denies: Anxiety Hematological/Lymphatic: Denies: Anemia, Blood Clots Past Medical History - SOCIAL HISTORY Smoking Status: Current every day smoker Alcohol Use: Heavy Alcohol Use Comment: Vodka Drug Use Detail:: Marijuana - RESPIRATORY Hx Respiratory Disorders: No Hx Pneumonia: Yes Comment:: viral pneumonia that made maria alej[facility] lungs collapse in hosp. 3 mo. - CARDIOVASCULAR Hx Cardio Disorders: Yes Hx Heart Attack: Yes (Jul 2015) Hx Hypertension: Yes - NEURO Hx Neuro Disorders: No - GI Hx GI Disorders: No - Hx Genitourinary Disorders: Yes Comment:: incontinence - ENDOCRINE Hx Endocrine Disorders: Yes Hx Thyroid Disease: Yes - MUSCULOSKELETAL Hx Musculoskeletal Disorders: Yes Hx Back Injury: Yes Comment:: spinal stenosis - PSYCH Hx Psych Problems: No - HEMATOLOGY/ONCOLOGY Hx Hematology/Oncology Disorders: No Family Medical History Any Significant Family History?: Yes Hx Cancer: Father, Mother H&P Meds/Allergies - Allergies Allergies: Allergies Allergy/AdvReac Type Severity Reaction Status Date / Time Sulfa (Sulfonamide Allergy HIVES Verified 10/19/16 17:28 Antibiotics) - Home Medications Previous Rx's Medication Instructions Recorded Fluticasone Propionate [Flonase] 2 spray EACH NARES DAILY #1 bottle 04/28/14 Acetaminop W/ Codeine 300/30Mg 1 tab PO Q4H #14 tab 10/19/16 [Tylenol #3] Hydrocodone/Acetaminophen [[place] 1 each PO Q6H PRN #15 tablet 11/02/17 5-325 Tablet] - Active Medications Active Medications: Current Medications Clonidine HCl (Catapres) 0.1 mg PO BID TAN Last Admin: 05/17/18 00:31 Dose: 0.1 mg Hydromorphone HCl (Dilaudid) 0.5 mg IV Q2H PRN PRN Reason: ABDOMINAL PAIN Sodium Chloride () 1,000 mls @ 100 mls/hr IV .Q10H PRN PRN Reason: LARGE VOLUME IV Last Admin: 05/17/18 07:35 Dose: 100 mls/hr Levothyroxine Sodium (Synthroid) 75 mcg PO DAILYTHY [facility] Last Admin: 05/17/18 06:29 Dose: 75 mcg Non-Formulary Medication (Desvenlafaxine Succinate [Pristiq]) 100 mg PO ASDIR [facility] Ondansetron HCl (Zofran) 4 mg IVP Q4H PRN PRN Reason: NAUSEA Trazodone HCl (Desyrel) 50 mg PO QHS [facility] Last Admin: 05/16/18 23:03 Dose: Not Given Physical Exam - Vital Signs Vital Signs: Vital Signs - Last 24 Hrs Temp Pulse Pulse Pulse Resp BP BP 05/17/18 06:00 98.1 F 87 18 179/87 05/16/18 22:49 124 H 20 05/16/18 22:25 99.1 F 124 H 20 213/136 05/16/18 22:03 121 H 24 167/138 05/16/18 20:35 20 192/119 05/16/18 18:30 98.6 F 117 H 54 H 223/164 Pulse Ox 05/17/18 06:00 93 L 05/16/18 22:49 05/16/18 22:25 94 L 05/16/18 22:03 94 L 05/16/18 20:35 91 L 05/16/18 18:30 - General General Appearance: Alert, Oriented x3, Cooperative, Moderate distress Limitations: No limitations - Head Head exam: Atraumatic, Normocephalic, Normal inspection Head exam detail: negative: Abrasion, Contusion, Strong's sign, General tenderness, Hematoma, Laceration - Eye Eye exam: Normal appearance. negative: Conjunctival injection, Periorbital swelling, Periorbital tenderness, Scleral icterus - ENT Ear exam: negative: Auricular hematoma, Auricular trauma Nasal Exam: negative: Active bleeding, Discharge, Dried blood, Foreign body Mouth exam: negative: Drooling, Laceration, Muffled voice, Tongue elevation - Neck Neck exam: Normal inspection. negative: Meningismus, Tenderness - Respiratory Respiratory exam: Normal lung sounds bilaterally. negative: Rales, Respiratory distress, Rhonchi, Stridor - Cardiovascular Cardiovascular Exam: Regular rate, Normal rhythm, Normal heart sounds - GI/Abdominal GI/Abdominal exam: Soft, Tenderness, Other (Diffuse TTP present on examination, soft, no rigidity, no peritoneal signs are present on examination.). negative: Rebound, Rigid - Rectal Rectal exam: Deferred - exam: Deferred - Extremities Extremities exam: Normal inspection. negative: Pedal edema, Tenderness - Back Back exam: Denies: CVA tenderness (R), CVA tenderness (L) - Neurological Neurological exam: Alert, Normal gait, Oriented X3 - Psychiatric Psychiatric exam: Normal affect, Normal mood - Skin Skin exam: Normal color. negative: Abrasion Type of lesion: negative: abrasion Results - Labs Result Diagrams: 05/16/18 19:00 05/16/18 19:00 Labs Last 24 Hours: Laboratory Results - last 24 hr 05/16/18 05/16/18 05/16/18 19:00 19:00 19:46 WBC 12.5 H RBC 4.63 Hgb 14.8 Hct 44.1 MCV 95.2 MCH 32.0 MCHC 33.6 RDW 13.5 Plt Count 292 MPV 11.3 H Neutrophils % 90.0 H Eosinophils % Not Reportable Basophils % Not Reportable Lymphocytes 7.0 L Monocytes 3.0 Sodium 143 Potassium 3.7 Chloride 101 Carbon Dioxide 21.0 L Anion Gap 21.0 H BUN 13 Creatinine 0.8 Estimated GFR > 60 Random Glucose 186 H Lactic Acid Cancelled 2.6 H Calcium 10.0 Total Bilirubin 1.00 AST 23 ALT 14 Alkaline Phosphatase 90 Total Protein 6.6 Albumin 4.1 Globulin 2.5 Albumin/Globulin Ratio 1.6 Lipase 11 L - Imaging and Cardiology CT scan - abdomen Status: Report reviewed (biliary ductal dilatation, large hiatal hernia, moderate amt of stool in colon) VTE H&P Assessment - Risk for VTE Risk for VTE: Yes Risk Level: Moderate Risk Assessment Date: 05/17/18 Risk Assessment Time: 09:55 VTE Orders Placed or Will Be Placed: Yes Plan - Inpatient Certification Inpatient Certification: Admit to inpatient care: Based on my medical assessment, after consideration of patient's risk factors (age, co-morbidities and patient presenting symptoms and acuity), I expect that this patient will remain in the hospital greater than or equal to two midnights and that the services needed warrant inpatient care because: Patient Risk Factors: [Age, co-morbidities] Estimated length of stay: [48-72 hours] The patient may reasonably be expected to be discharged or transferred to a hospital within 96 hours after admission to [facility]. Services needed: [pain management, surgical consult, consult social work] Post hospital care (if known): [] I certify that my determination is in accordance with my understanding of Medicare requirements for reasonable and necessary inpatient services. 05/17/18 09:55 - Detailed Diagnosis and Plan (1) Hiatal hernia Current Visit: Yes Status: Acute Base Code: K44.9 - DIAPHRAGMATIC HERNIA WITHOUT OBSTRUCTION OR GANGRENE Comment: 05/17/18: -Large hiatal hernia on abd/pelvis CT containing majority of stomach in chest cavity -Pain management with 0.5mg q2h, nausea managed with zofran 4mg qh4 -consult to Dr. Noel ordered today for further eval of biliary ductal dilatation -Consult to case management ordered today for poss palliative care (2) Extrahepatic obstructive biliary disease Current Visit: Yes Status: Acute Base Code: K83.1 - OBSTRUCTION OF BILE DUCT Comment: 05/17/18: -mild intra and extrahepatic biliary ductal dilation s/p kane, increased from CT on 04/29/18 -Consult to Dr. Noel ordered for further eval of increased dilatation- r/o obstruction (3) At risk for deep venous thrombosis Current Visit: Yes Status: Acute Base Code: Z91.89 - OTH PERSONAL RISK FACTORS, NOT ELSEWHERE CLASSIFIED Comment: 05/17/18: -lovenox 40mg SC ordered qhs for DVT prophylaxis (4) Full code status Current Visit: Yes Status: Acute Base Code: Z78.9 - OTHER SPECIFIED HEALTH STATUS Comment: 05/17/18: -Pt. is a full code
[2018-05-17 10:03] LABS: ALB/GLOB RATIO 1.7 (1.1-1.8); ALBUMIN 3.8 g/dL (4.0-5.0); ALKALINE PHOSPHATASE 76 U/L (35-104); ALT/SGPT 16 U/L (<33); AST/SGOT 24 U/L (10.0-35.0); BLOOD UREA NITROGEN 14 mg/dL (8-23); CREATININE 0.8 mg/dL (0.5-0.9); EST GLOMERULAR FILTRATION RATE > 60 mL/min; GLUCOSE,RANDOM 107 mg/dL (74-109)
--- NOTE | 2018-05-17 14:22 | Discharge Summary ---
Providers Discharge Summary Date: 05/17/18 Date of admission: 05/16/18 22:11 Expected Date of Discharge: 05/17/18 Attending physician: MORGAN CHRISTIAN Primary care physician: ETHEL SMALL D.O. Consults: Consult Orders 05/17/18 09:21 Consult - Case Management Now Comment: Reason For Exam: Discuss hospice/palliative care 05/17/18 09:49 Consult NOW Consulting Provider: Rolan Noel Physician Instructions: Reason For Exam: biliary ductal dilatation and large hiatal hernia Physical Exam - Vital Signs Vital Signs: Vital Signs - Last 24 Hrs Temp Pulse Pulse Pulse Resp BP BP 05/17/18 06:00 98.1 F 87 18 179/87 05/16/18 22:49 124 H 20 05/16/18 22:25 99.1 F 124 H 20 213/136 05/16/18 22:03 121 H 24 167/138 05/16/18 20:35 20 192/119 05/16/18 18:30 98.6 F 117 H 54 H 223/164 Pulse Ox 05/17/18 06:00 93 L 05/16/18 22:49 05/16/18 22:25 94 L 05/16/18 22:03 94 L 05/16/18 20:35 91 L 05/16/18 18:30 - General General Appearance: Alert, Oriented x3, Cooperative, Moderate distress Limitations: No limitations - Head Head exam: Atraumatic, Normocephalic, Normal inspection Head exam detail: negative: Abrasion, Contusion, Strong's sign, General tenderness, Hematoma, Laceration - Eye Eye exam: Normal appearance. negative: Conjunctival injection, Periorbital swelling, Periorbital tenderness, Scleral icterus - ENT Ear exam: negative: Auricular hematoma, Auricular trauma Nasal Exam: negative: Active bleeding, Discharge, Dried blood, Foreign body Mouth exam: negative: Drooling, Laceration, Muffled voice, Tongue elevation - Neck Neck exam: Normal inspection. negative: Meningismus, Tenderness - Respiratory Respiratory exam: Normal lung sounds bilaterally. negative: Rales, Respiratory distress, Rhonchi, Stridor - Cardiovascular Cardiovascular Exam: Regular rate, Normal rhythm, Normal heart sounds - GI/Abdominal GI/Abdominal exam: Soft, Tenderness, Other (Diffuse TTP present on examination, soft, no rigidity, no peritoneal signs are present on examination.). negative: Rebound, Rigid - Rectal Rectal exam: Deferred - exam: Deferred - Extremities Extremities exam: Normal inspection. negative: Pedal edema, Tenderness - Back Back exam: Denies: CVA tenderness (R), CVA tenderness (L) - Neurological Neurological exam: Alert, Normal gait, Oriented X3 - Psychiatric Psychiatric exam: Normal affect, Normal mood - Skin Skin exam: Normal color. negative: Abrasion Type of lesion: negative: abrasion Hospitalization - Hospitalization Admission Diagnosis: Intractable abdominal pain. Large hiatal hernia. Nausea/ vomiting - Problem List/Discharge Diagnosis (1) Hiatal hernia Current Visit: Yes Status: Acute Base Code: K44.9 - DIAPHRAGMATIC HERNIA WITHOUT OBSTRUCTION OR GANGRENE Comment: 05/17/18: -Large hiatal hernia on abd/pelvis CT containing majority of stomach in chest cavity -Pain management with 0.5mg q2h, nausea managed with zofran 4mg qh4 -consult to Dr. Noel ordered today for further eval of biliary ductal dilatation -Consult to case management ordered today for poss palliative care (2) Extrahepatic obstructive biliary disease Current Visit: Yes Status: Acute Base Code: K83.1 - OBSTRUCTION OF BILE DUCT Comment: 05/17/18: -mild intra and extrahepatic biliary ductal dilation s/p kane, increased from CT on 04/29/18 -Consult to Dr. Noel ordered for further eval of increased dilatation- r/o obstruction - Per Dr. Noel, pt is not a surgical candidate (3) At risk for deep venous thrombosis Current Visit: Yes Status: Acute Base Code: Z91.89 - OTH PERSONAL RISK FACTORS, NOT ELSEWHERE CLASSIFIED Comment: 05/17/18: -lovenox 40mg SC ordered qhs for DVT prophylaxis (4) Full code status Current Visit: Yes Status: Acute Base Code: Z78.9 - OTHER SPECIFIED HEALTH STATUS Comment: 05/17/18: -Pt. is a full code - Hospitalization Course Disposition: Home, Self-Care Hospital Course: Mrs. Silva is an 82 year-old female who presented to the ED on for evaluation of diffuse abdominal pain, nausea, and vomiting that began 2-3 days prior. Patient's caregiver reported history of large hiatal hernia that has migrated into the chest cavity that is inoperable due to the patient's age. Patient reported that she is being medically treated with omeprazole for her symptoms. Patient denied fevers, chills, or previous abdominal surgeries. Her health history includes: [place] in 2016, HTN, urinary incontinence, thyroid disorder, spinal stenosis, and hiatal hernia. Current every day smoker, medical marijuana use, and moderate alcohol use. In the ED, her vitals were: BP 223/164, HR 117, RR 54, T 98.6F. Labs revealed WBC of 12.5 with 90% neutrophils, CO2 21, AG of 21. Abdominal/pelvis CT demonstrated increased biliary duct dilatation which may represent expected change s/p cholecystectomy vs. possible biliary obstruction and large hiatal hernia with the majority of the stomach within the chest. An incidental finding of 2.6cm left adnexal cyst was found and recommend nonemergent f/u pelvic ultrasound. Pt. was admitted for further evaluation and possible hospice vs. palliative care consultation. 05/17/18 0900: Pt. is resting comfortably in bed. She presently denies pain and nausea. Repeat labs ordered and pending. Case management consult ordered to discuss long-term plan- likely palliative care for symptom management. Will order consult for surgery to further assess biliary ductal dilation that has increased in size from CT on . 05/17/18 1400: Pt. continues to deny nausea and pain. Repeat labs showed improved dehydration, WBC now WNL. Dr. Noel was consulted, CT findings reviewed, he states pt is not a surgical candidate due to her age and co- morbidities. Case management spoke with pt regarding long-term plan, pt. to f/ u with PCP regarding palliative care planning. Will plan to d/c home today. PCP: Dr. Small Procedures: Imaging and X-Rays 05/16/18 18:47 ABDOMEN/PELVIS W CONTRAST [CT] Stat Abnormal Labs: Abnormal Lab Results 05/16/18 05/16/18 05/16/18 Range/Units 19:00 19:00 19:46 WBC 12.5 H (4.2-12.2) K/uL MCV (81-97) fl MPV 11.3 H (7.4-10.4) fl Neutrophils % 90.0 H (47-80) % Lymphocytes % (16-45) % Monocytes % (0-9) % Lymphocytes 7.0 L (16-45) % Carbon Dioxide 21.0 L (22-29) mmol/L Anion Gap 21.0 H (7-16) Random Glucose 186 H (74-109) mg/dL Lactic Acid 2.6 H (0.5-2.2) mmol/L Total Protein (6.6-8.7) g/dL Albumin (4.0-5.0) g/dL Lipase 11 L (13-60) U/L 05/17/18 05/17/18 Range/Units 09:50 09:50 WBC (4.2-12.2) K/uL MCV 98.0 H (81-97) fl MPV 10.8 H (7.4-10.4) fl Neutrophils % (47-80) % Lymphocytes % 8.8 L (16-45) % Monocytes % 10.5 H (0-9) % Lymphocytes (16-45) % Carbon Dioxide (22-29) mmol/L Anion Gap (7-16) Random Glucose (74-109) mg/dL Lactic Acid (0.5-2.2) mmol/L Total Protein 6.0 L (6.6-8.7) g/dL Albumin 3.8 L (4.0-5.0) g/dL Lipase (13-60) U/L Condition at Discharge: (2) Stable VTE Discharge VTE Reason For No Overlap Therapy: Not Indicated Discharge Medications - Discharge Medications Prescriptions: Ondansetron [Zofran Odt] 4 mg PO Q8H PRN #21 tab.rapdis PRN Reason: Nausea/Vomiting Home Medications: Ambulatory Orders Clonidine HCl [Catapres] 0.1 mg PO BID 04/28/14 [Last Taken 1 Day Ago ~10/18/16] Desloratadine 5 mg PO DAILY 04/28/14 [Last Taken 1 Day Ago ~10/18/16] Desvenlafaxine Succinate [Pristiq] 100 mg PO DAILY 04/28/14 [Last Taken 1 Day Ago ~10/18/16] Fluticasone Propionate [Flonase] 2 spray EACH NARES DAILY #1 bottle 04/28/14 [ Last Taken 1 Day Ago ~10/18/16] Levothyroxine Sodium [Synthroid] 75 mcg PO DAILY 04/28/14 [Last Taken 1 Day Ago ~10/18/16] Meloxicam 15 mg PO DAILY 04/28/14 [Last Taken 1 Day Ago ~10/18/16] Tiagabine HCl 4 mg PO DAILY 04/28/14 [Last Taken 1 Day Ago ~10/18/16] Trazodone HCl [Desyrel] 50 mg PO QHS 04/28/14 [Last Taken 1 Day Ago ~10/18/16] Zolpidem Tartrate [Ambien Cr] 12.5 mg PO QHS PRN 04/28/14 [Last Taken 1 Day Ago ~10/18/16] Hydrocodone/Acetaminophen [[employer] 5-325 Tablet] 1 each PO Q6H PRN #15 tablet 09/16 [Last Taken Unknown] Ondansetron [Zofran Odt] 4 mg PO Q8H PRN #21 tab.rapdis 05/17/18 [Last Taken Unknown] Discharge Plan - Discharge Instructions Activity at Discharge: Increase Activity as Tolerated Diet at Discharge: Regular Diet (increase as tolerated) Additional Instructions: Follow up with Dr. Small on Thursday, June 16 at 2:30PM Gradually increase diet, opt for less acidic/spicy foods Return to the ED if your symptoms worsen, or for any chest pain Quality Measures - Quality Measures Quality Measures: Advance Directives, Documentation of Current Medications in Medical Record, Elder Maltreatment Screen and Follow-Up Plan, Screening for High Blood Pressure and F/U Documented - Current Medications Quality Measure: Measure #130: Documentation of Current Medications Documentation of Current Medications: <Current Medications Documented/Reviewed> [G3334] - Blood Pressure Screening Quality Measure: Screening for High Blood Pressure and Follow-Up Documented Does Patient Have Any of the Following: Active Dx of HTN Blood Pressure Classification: Hypertensive Reading Systolic Measurement: 223 Diastolic Measurement: 164 Screening for High Blood Pressure: Patient Exclusion, Hx of HTN [G9744] - Advance Directives Quality Measure: Measure #47: Care Plan Advance Directives Established: Yes Advance Directives Information Provided To Patient: No Advance Directives on File: No Living Will: No Power of Pattern Keeper: Yes Power of Pattern Keeper Name: Ethel Riggs Advance Care Planning: <Care Plan/Decision Maker Documented; Discussed & Documented> [1972F] - Elder Abuse Suspicion Index Screening: Elder Abuse Suspicion Index Screening Rely on people for bathing, dressing, shopping, banking, etc: No Prevented from getting food, clothes, medication, etc: No Made to feel shamed or threatened by someone: No Forced to sign papers or use money against will: No Feel afraid, touched in ways not wanted or hurt physically: No Poor eye contact, withdrawn, malnourished, cuts or bruises: No Screening Result: Negative result EASI Reference Information: Lynette NICHOLE, Carmen Kelly, Liberty Rene, Jackie aKba.Development and validation of a tool to assist physicians identification of elder abuse: The Elder Abuse Suspicion Index (EASI ). Journal of Elder Abuse and Neglect, 2008; 20 (3): 276-300. - Elder Maltreatment Screen Quality Measures: Elder Maltreatment Screen and Follow-Up Plan Elder Maltreatment Screen: <Negative, No Follow-Up Plan Required> [G8734]
[2018-05-17] MEDS ORDERED: ENOXAPARIN 40 MG/0.4 ML SYR SQ SCH (22:00)
--- NOTE | 2018-05-18 10:20 | Medical Records Consult ---
DATE OF CONSULTATION: 05/17/2018 HISTORY OF PRESENT ILLNESS: The patient is an 82-year-old female who had a 2- to 3-day history of abdominal pain. She felt this was in her mid abdomen and was associated with nausea and vomiting. She was seen at [facility] ER where a full workup was done. This did show mildly elevated white blood cell count as far as lactate. CT scan did show a non-obstructing large paraesophageal hernia. This was chronic reviewing her old films, and she has known about this for many, many, many years. They did comment on some ductal dilatation in her biliary tree which is both intrahepatic and extrahepatic. PAST MEDICAL HISTORY: Pneumonia, COPD, chronic pain. PAST SURGICAL HISTORY: Cholecystectomy, appendectomy. CURRENT MEDICATIONS: 1. Flonase. 2. Tylenol 3 with codeine. 3. [place]. ALLERGIES: SULFA DRUGS. SOCIAL HISTORY: She smokes daily. PHYSICAL EXAMINATION: VITAL SIGNS: She is afebrile. She is a bit tachycardic, about 110. Blood pressure is a bit high at 179-87. HEART: Regular. LUNGS: Decreased. ABDOMEN: Soft, nontender, nondistended. EXTREMITIES: No trace of edema. LABORATORY DATA: I did review her repeat laboratory values which initially showed a white blood cell count of 12,000 down to 9.1. Her electrolytes were normal. Her bilirubin level is 1.0. Transaminases are normal. RADIOGRAPHIC DATA: CT scan did show stable paraesophageal hernia. There was intraductal and extraductal dilatation with no obvious distal obstructing mass. IMPRESSION: 1. Hiatal hernia. This is chronic in nature. This is not ischemic and not obstructing. Reviewing her old CT scans, this is for the most part unchanged. 2. Ductal dilatation. PLAN: At this point, there does not appear to be any obvious obstructing source. Her bilirubin level is normal. At this point, she needs no further workup in regard to this. If she starts to get a rise in her bilirubin, MRCP would be warranted. Thank you for this referral. YOBANI
== END 2018-05-17 15:20 | disposition home or self-care (01) ==
LOC: ER 18:24 → INTOOBSV 22:11 → MEDSURG 22:11
PROVIDERS: ADMIT Internal Medicine; ATTEND Internal Medicine
DX: K44.9 Diaphragmatic hernia without obstruction or gangrene (principal); K83.1 Obstruction of bile duct; R11.2 Nausea with vomiting, unspecified; J44.9 Chronic obstructive pulmonary disease, unspecified; I10 Essential (primary) hypertension; E03.9 Hypothyroidism, unspecified; I25.2 Old myocardial infarction; Z78.9 Other specified health status
CPT/HCPCS: 99285 ×2; 96374; 96372; 96375; 96361; 83605; 83690; 85025; 80053 ×2; 85027; 74177; G0378 ×2; Q9967; J2405; J1170; J2270; 99220; J2550; J7030

== ENCOUNTER 2018-05-16 18:28 | Emergency (ER) | payer MEDICARE | END 2018-05-16 18:33 | disposition left against medical advice (07) | LOC: ER 18:28 | DX: Z53.9 Procedure and treatment not carried out, unspecified reason (principal) ==

== ENCOUNTER 2019-03-25 14:57 | Emergency (ER) | payer MEDICARE ==
--- NOTE | 2019-03-25 15:22 | Emergency Department Record ---
History of Present Illness - General Chief complaint: Extremity Problem Stated complaint: WRIST PAIN Time Seen by Provider: 03/25/19 15:14 Source: Patient, RN notes reviewed Mode of Arrival: Ambulatory - History of Present Illness Initial comments: fell on the wrist with swelling and pain 2 weeks ago. She presented to ED and she thought she missed her appointment and she didn't have a splint on and we t0ok off rings and bracelets and applied OCL splint and told her her appointment is 04/01/2019 at 2:15pm. Patient is oriented times three and said she was seen by Dr Ethel Huber and an appointment was set up with Dr Crum and reviewed her xray with a distal radius and ulnar fracture Onset/Timin -: Week(s) Location: Right, Other - Related Data Previous Rx's Medication Instructions Recorded Fluticasone Propionate [Flonase] 2 spray EACH NARES DAILY #1 bottle 04/28/14 Hydrocodone/Acetaminophen [[place] 1 each PO Q6H PRN #15 tablet 11/02/17 5-325 Tablet] Ondansetron [Zofran Odt] 4 mg PO Q8H PRN #21 tab.rapdis 05/17/18 Allergies Allergy/AdvReac Type Severity Reaction Status Date / Time Sulfa (Sulfonamide Allergy HIVES Verified 10/19/16 17:28 Antibiotics) Travel Screening - Travel/Exposure Within Last 30 Days Have you traveled within the last 30 days?: No - Travel/Exposure Within Last Year Have you traveled outside the [place] in the last year?: No - Additonal Travel Details Have you been exposed to anyone with a communicable illness?: No Review of Systems Reviewed: No additional complaints except as noted below Constitutional: Reports: As per HPI. Denies: Chills, Fever, Malaise, Night sweats, Weakness, Weight change Eyes: Reports: As per HPI. Denies: Eye discharge, Eye pain, Photophobia, Vision change ENT: Reports: As per HPI. Denies: Congestion, Dental pain, Ear pain, Epistaxis, Hearing loss, Throat pain Respiratory: Reports: As per HPI. Denies: Cough, Dyspnea, Hemoptysis, Stridor, Wheezes Cardiovascular: Reports: As per HPI. Denies: Arrhythmia, Chest pain, Dyspnea on exertion, Edema, Murmurs, Orthopnea, Palpitations, Paroxysmal nocturnal dyspnea, Rheumatic Fever, Syncope Endocrine: Reports: As per HPI. Denies: Fatigue, Heat or cold intolerance, Polydipsia, Polyuria Gastrointestinal: Reports: As per HPI. Denies: Abdominal pain, Constipation, Diarrhea, Hematemesis, Hematochezia, Melena, Nausea, Vomiting Genitourinary: Reports: As per HPI. Denies: Abnormal menses, Discharge, D yspareunia, Dysuria, Frequency, Hematuria, Incontinence, Retention, Urgency Musculoskeletal: Reports: As per HPI, Joint swelling. Denies: Arthralgia, Back pain, Gout, Myalgia, Neck pain Skin: Reports: As per HPI. Denies: Bruising, Change in color, Change in hair/nails, Lesions, Pruritus, Rash Neurological: Reports: As per HPI. Denies: Abnormal gait, Confusion, Headache, Numbness, Paresthesias, Seizure, Tingling, Tremors, Vertigo, Weakness Psychiatric: Reports: As per HPI. Denies: Anxiety, Auditory hallucinations, Depression, Homicidal thoughts, Suicidal thoughts, Visual hallucinations Hematological/Lymphatic: Reports: As per HPI. Denies: Anemia, Blood Clots, Easy bleeding, Easy bruising, Swollen glands Past Medical History - SOCIAL HISTORY Smoking Status: Current every day smoker Alcohol Use Comment: 1 drink daily Drug Use: None - RESPIRATORY Hx Respiratory Disorders: No Hx Pneumonia: Yes Comment:: viral pneumonia that made maria alejandra lungs collapse in hosp. 3 mo. - CARDIOVASCULAR Hx Cardio Disorders: Yes Hx Heart Attack: Yes (Jul 2015) Hx Hypertension: Yes - NEURO Hx Neuro Disorders: No - GI Hx GI Disorders: No - Hx Genitourinary Disorders: Yes Comment:: incontinence - ENDOCRINE Hx Endocrine Disorders: Yes Hx Thyroid Disease: Yes - MUSCULOSKELETAL Hx Musculoskeletal Disorders: Yes Hx Back Injury: Yes Comment:: spinal stenosis - PSYCH Hx Psych Problems: No - HEMATOLOGY/ONCOLOGY Hx Hematology/Oncology Disorders: No Family Medical History Any Significant Family History?: No Hx Cancer: Father, Mother Physical Exam - General General Appearance: Alert, Oriented x3, Cooperative, No acute distress - Head Head exam: Normal inspection - Eye Eye exam: Normal appearance, PERRL Pupils: Normal accommodation - ENT ENT exam: Normal exam, Mucous membranes moist, Normal external ear exam, Normal orophraynx, TM's normal bilaterally Ear exam: Normal external inspection. negative: External canal tenderness Nasal Exam: Normal inspection. negative: Discharge, Sinus tenderness Mouth exam: Normal external inspection, Tongue normal Teeth exam: Normal inspection. negative: Dental caries Throat exam: Normal inspection. negative: Tonsillar erythema, Tonsillar exudate - Neck Neck exam: Normal inspection, Full ROM. negative: Tenderness - Respiratory Respiratory exam: Normal lung sounds bilaterally. negative: Respiratory distress - Cardiovascular Cardiovascular Exam: Regular rate, Normal rhythm, Normal heart sounds Peripheral Pulses: 2+: Radial (R), Radial (L) - GI/Abdominal GI/Abdominal exam: Soft, Normal bowel sounds. negative: Tenderness - Rectal Rectal exam: Deferred - exam: Deferred - Extremities Extremities exam: Normal inspection, Full ROM, Normal capillary refill. negativ e: Tenderness - Back Back exam: Reports: Normal inspection, Full ROM. Denies: Muscle spasm, Rash noted, Tenderness - Neurological Neurological exam: Alert, Normal gait, Oriented X3, Reflexes normal, Other (finger strength good and neuro intact) - Psychiatric Psychiatric exam: Normal affect, Normal mood - Skin Skin exam: Dry, Intact, Normal color, Warm Course Vital Signs 03/25/19 14:58 Pulse Rate 78 Respiratory 16 Rate Blood Pressure 170/106 Pulse Ox 94 L Disposition Clinical Impression: Fracture of wrist Qualifiers: Encounter type: initial encounter Fracture type: closed Laterality: right Qualified Code(s): S62.101A - Fracture of unspecified carpal bone, right wrist, initial encounter for closed fracture Disposition: Home, Self-Care Condition: (1) Good Instructions: Wrist Fracture in Adults (ED) Additional Instructions: tylenol for pain follow up with Dr Crum on apr at 2:15pm at the [facility] specialty clinic Forms: Patient Portal Access Time of Disposition: 15:30 Quality - Quality Measures Quality Measures: N/A - Blood Pressure Screening Does Patient Have Any of the Following: No, Active Dx of HTN Blood Pressure Classification: Hypertensive Reading Systolic Measurement: 170 Diastolic Measurement: 106 Screening for High Blood Pressure: Patient Exclusion, Hx of HTN [G9744]
== END 2019-03-25 15:47 | disposition home or self-care (01) ==
LOC: ER 14:57
DX: S52.501D Unspecified fracture of the lower end of right radius, subsequent encounter for closed fracture with routine healing (principal); S52.601D Unspecified fracture of lower end of right ulna, subsequent encounter for closed fracture with routine healing; X58.XXXD Exposure to other specified factors, subsequent encounter; I10 Essential (primary) hypertension; I25.2 Old myocardial infarction; F17.210 Nicotine dependence, cigarettes, uncomplicated
CPT/HCPCS: 99283

== ENCOUNTER 2019-04-07 08:30 | Day surgery (SDC) | payer MEDICARE ==
[~2019-04-07 08:30] MED LIST: ACETAMINOPHEN 1,000 MG/100 ML BTL IVPB ONE
[2019-04-07] MEDS ORDERED: MIDAZOLAM HCL 2MG/2ML VIAL IV ONE (08:31)
[2019-04-07] MEDS ORDERED: *PACU ONLY* KETAMINE HCL 10 MG/ML (20ML) VIAL IV ONE (08:31)
[2019-04-07] MEDS ORDERED: ROPIVACAINE HCL (NAROPIN) /PF 5MG/ML 20ML VIAL IV ONE (08:31)
[2019-04-07] MEDS ORDERED: DEXAMETHASONE 4 MG/ML 1ML VIAL IVP ONE (08:31)
[2019-04-07] MEDS ORDERED: KETOROLAC 30 MG/ML VIAL IVP ONE (08:31)
[2019-04-07] MEDS ORDERED: PROPOFOL 10 MG/ML VIAL IV ONE (08:31)
[2019-04-07] MEDS ORDERED: LIDOCAINE 2% MDV (20MG/ML) 20ML VIAL IV ONE (08:31)
[2019-04-07] MEDS ORDERED: RINGERS SOLUTION,LACTATED 1,000 ML IV ONE (08:55)
--- NOTE | 2019-04-07 12:39 | Operative Note ---
DATE OF SURGERY: 04/07/2019 SURGEON: Jaret Crum D.O. REFERRING PHYSICIAN: Ethel Huber D.O. PREOPERATIVE DIAGNOSIS: FRACTURE OF THE RIGHT DISTAL RADIUS, DISPLACED. POSTOPERATIVE DIAGNOSIS: FRACTURE OF THE RIGHT DISTAL RADIUS, DISPLACED. OPERATION: CLOSED REDUCTION PERCUTANEOUS PINNING OF RIGHT DISTAL RADIUS. DESCRIPTION: This 83-year-old female was taken to the Operating Room and placed in supine position on the operating room table. Axillary block anesthesia was induced and the right upper extremity was elevated. It was prepped with Hibiclens and draped in the usual sterile fashion. A tourniquet was placed around the right proximal arm, but not used during the procedure. A closed reduction was accomplished, we did not get as much lengthening as I had hoped because of early healing of this fracture, but the wrist was manipulated to an improved position and subsequently two 0.054 K-wires were advanced across the distal radius through the styloid and into the medial border of the radius. The position was checked with the image intensifier in the anterior, posterior and lateral positions and found to be satisfactory. Subsequently the wounds were cleansed, the pins were bent over and cut off and pin caps applied. An AP plaster mold was subsequently applied and the patient was taken to the Recovery Room in satisfactory condition. GROSS PATHOLOGY: This patient has a displaced fracture of the distal radius which started to heal, it was difficult to manipulate to improve the position, but once we felt that it was satisfactory the pins were placed across the fracture site, cut off and splinted in the matter described above. JOB NUMBER: [id number] MTDD
== END 2019-04-07 11:35 | disposition home or self-care (01) ==
LOC: SUR 08:30
PROVIDERS: ATTEND Orthopaedic Surgery
DX: S52.501A Unspecified fracture of the lower end of right radius, initial encounter for closed fracture (principal); I10 Essential (primary) hypertension; E03.9 Hypothyroidism, unspecified; F17.210 Nicotine dependence, cigarettes, uncomplicated
CPT/HCPCS: 25606; 01820; 64450; C1713; J1885; J2795; 76942; J7120